=== PATIENT | male | born 1960 | race Caucasian/White ===

== ENCOUNTER 2017-07-02 10:06 | Emergency (ER) | payer OTHER ==
--- NOTE | 2017-07-02 10:30 | EDM.PDOC ---
ED HPI GENERAL MEDICAL PROBLEM - General Chief Complaint: Back Pain or Injury Stated Complaint: LOW BACK PAIN Time Seen by Provider: 07/02/17 10:08 Source of Information: Reports: Patient History Limitations: Reports: No Limitations - History of Present Illness INITIAL COMMENTS - FREE TEXT/NARRATIVE: HISTORY AND PHYSICAL: Back pain History of present illness: Patient is a 57-year-old male who presents to the emergency room with complaints of "L4-L5" back pain 3 months. He does not recall doing any activity or injury that started this pain. He states that the pain started in the low back and has progressively gotten worse. He did see a provider at [facility] who prescribed a muscle relaxer and anti-inflammatory. He states "this did nothing for me". She has been trying ice and heat to the area multiple times per day for the past 2 weeks and has had no relief. The pain is localized and does not radiate anywhere. He denies any urinary or bowel involvement. Denies any incontinence, paresthesias, or difficulty ambulating. Denies any fever, chills, chest pain, shortness of breath, abdominal pain, nausea, vomiting or diarrhea. Denies any recent injury or trauma. Review of systems: As per history of present illness and below otherwise all systems reviewed and negative. Past medical history: As per history of present illness and as reviewed below otherwise noncontributory. Surgical history: As per history of present illness and as reviewed below otherwise noncontributory. Social history: No reported history of drug or alcohol abuse. Family history: As per history of present illness and as reviewed below otherwise noncontributory. Physical exam: HEENT: Atraumatic, normocephalic, pupils reactive, negative for conjunctival pallor or scleral icterus, mucous membranes moist, throat clear, neck supple, nontender, trachea midline. Lungs: Clear to auscultation, breath sounds equal bilaterally, chest nontender. Heart: S1S2, regular, negative for clicks, rubs, or JVD. Abdomen: Soft, nondistended, nontender. Negative for masses or hepatosplenomegaly. Negative for costovertebral tenderness. Pelvis: Stable nontender. Genitourinary: Deferred. Rectal: Deferred. Back: No pin point vertebral tenderness upon palpation. No obvious deformities, step-offs, crepitus upon palpation. Able to ambulate on his heels and toes without difficulty. Denies any numbness or tingling to his upper or lower extremities. Denies any urinary incontinence or fecal incontinence. Extremities: Atraumatic, negative for cords or calf pain. Neurovascular unremarkable. Neuro: Awake, alert, oriented. Cranial nerves II through XII unremarkable. Cerebellum unremarkable. Motor and sensory unremarkable throughout. Exam nonfocal. Patient reports he has "L4-L5" back pain for the past 3 months. 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 He has not had any previous x-rays, MRIs or CT imaging of his back. Patient is agreeable for a x- ray today. We did discuss the likelihood of him needing an MRI in the future if he continues to have back pain. He voices understanding and is agreeable to plan of care. X-ray report was normal. We did discuss the need for follow-up. Prescription for Cataflam 1 tab 3 times a day when necessary, dispensed 20-NR. Tramadol 50 mg 1 tab every 4-6 hours when necessary, dispensed 10, NR. Flexeril 10 mg 1 tab 3 times a day when necessary, spends 15, NR. We discussed the medications and when to take each of them. For further refills he needs to follow-up with her primary caregiver, As we do not do this in the emergency room. Willis centeno voices understanding and is agreeable to plan of care. He denies any further questions at this time. Diagnostics: Lumbar spine x-ray Therapeutics: Toradol Impression: Low back pain Plan: 1. Please take your medications as directed. Do not take either of these medications while driving or needing to be functioning at work as they may cause drowsiness. He may take Tylenol and/or ibuprofen as needed in a junction to these medications. 2. Gentle heat may be applied to the area. He may want to consider physical therapy if this is a chronic and ongoing problem. 3. Please follow-up with your primary care provider in the next 1-2 days. As we discussed he may need an MRI in the future if he continued to have back pain. As we discussed he may need an MRI in the future if he continued to have back pain. You also need to monitor your blood pressure as today's readings were high. 4. Return to the ED as needed and as discussed. Definitive disposition and diagnosis as appropriate pending reevaluation and review of above. Duration: Other (3 months) Lower Back Pain Score (Numeric/FACES): 7 - Related Data Allergies Allergy/AdvReac Type Severity Reaction Status Date / Time No Known Allergies Allergy Verified 07/02/17 10:41 Home Meds: Home Meds Losartan Potassium [Cozaar] 50 mg PO DAILY 07/02/17 [History] Varenicline Tartrate [Chantix] 1 mg PO DAILY 07/02/17 [History] ED ROS GENERAL - Review of Systems Review Of Systems: ROS reveals no pertinent complaints other than HPI. ED EXAM,LOWER BACK PAIN/INJURY - Physical Exam Exam: See Below (See dictation) Course - Vital Signs Last Recorded V/S: Last Vital Signs Temp 97.8 F 07/02/17 10:43 Pulse 91 07/02/17 10:43 Resp 14 07/02/17 10:43 BP 190/88 H 07/02/17 10:43 Pulse Ox 96 07/02/17 10:43 - Orders/Labs/Meds Meds: Medications Discontinued Medications Generic Name Dose Route Start Last Admin Trade Name Freq PRN Reason Stop Dose Admin Ketorolac Tromethamine 60 mg 07/02/17 10:47 07/02/17 10:55 Toradol IM 07/02/17 10:48 60 mg ONETIME ONE Administration Departure - Departure Time of Disposition: 11:59 Disposition: Home, Self-Care 01 Condition: Good Clinical Impression: Low back pain Qualifiers: Chronicity: chronic Back pain laterality: midline Sciatica presence: without sciatica Qualified Code(s): M54.5 - Low back pain - Discharge Information Referrals: Janiya Fan NP [Primary Care Provider] - Forms: ED Department Discharge Additional Instructions: My general discharge The following information is given to patients seen in the emergency department who are being discharged to home. This information is to outline your options for follow-up care. We provide all patients seen in our emergency department with a follow-up referral. The need for follow-up, as well as the timing and circumstances, are variable depending upon the specifics of your emergency department visit. If you don't have a primary care physician on staff, we will provide you with a referral. We always advise you to contact your personal physician following an emergency department visit to inform them of the circumstance of the visit and for follow-up with them and/or the need for any referrals to a consulting specialist. The emergency department will also refer you to a specialist when appropriate. This referral assures that you have the opportunity for follow-up care with a specialist. All of these measure are taken in an effort to provide you with optimal care, which includes your follow-up. Under all circumstances we always encourage you to contact your private physician who remains a resource for coordinating your care. When calling for follow-up care, please make the office aware that this follow-up is from your recent emergency room visit. If for any reason you are refused follow-up, please contact the [facility] Emergency Department at and asked to speak to the emergency department charge nurse. [facility] [address] [place] [id number] [facility] - Pain Management [address] [place] [id number] 1. Please take your medications as directed. Do not take either of these medications while driving or needing to be functioning at work as they may cause drowsiness. He may take Tylenol and/or ibuprofen as needed in a junction to these medications. His medications will not be refilled to the emergency room. Please follow-up with her primary caregiver for additional medication needs. The phone number for pain management has been given to you as well, he will need a referral to follow-up with this provider if desired. 2. Gentle heat may be applied to the area. He may want to consider physical therapy if this is a chronic and ongoing problem. 3. Please follow-up with your primary care provider in the next 1-2 days. As we discussed he may need an MRI in the future if he continued to have back pain. You also need to monitor your blood pressure as today's readings were high. 4. Return to the ED as needed and as discussed.
[2017-07-02] MEDS ORDERED: Ketorolac 60 MG/2 ML SDV IM ONE (10:47)
--- NOTE | 2017-07-02 11:53 | CR ---
EXAMINATION: Lumbar spine HISTORY: Pain COMPARISON: None TECHNIQUE: AP and lateral views FINDINGS: The lumbar spinal alignment is normal. The vertebral body heights and disc spaces appear gr ossly maintained. No fracture or dislocation. SI joints are symmetric. Bone mineralization is normal. Mild marginal osteophytes are noted. IMPRESSION: Unremarkable lumbar spine.
== END 2017-07-02 12:14 | disposition home or self-care (01) ==
LOC: MW.ED 10:06
DX: M54.5 Low back pain (principal); Z79.899 Other long term (current) drug therapy
CPT/HCPCS: 72100; 96372; 99283; J1885; 99284